=== PATIENT | female | born 1945 | race Caucasian/White ===

== ENCOUNTER 2022-01-15 06:37 | Outpatient (CLI) | payer MEDICARE, BC, SELFPAY ==
--- NOTE | ~2022-01-15 | MR_ITS ---
EXAMINATION: MR shoulder LT wo con DATE: 01/15/2022 07:39 INDICATION: Chronic left shoulder pain TECHNIQUE: Magnetic resonance imaging (MRI) of the left shoulder was performed without intravenous co ntrast. Sequences included axial PD-weighted FS FSE, coronal oblique PD-weighted FS FSE, coronal obli que T2-weighted FS FSE, sagittal PD-weighted FS FSE, and sagittal T1-weighted SE. COMPARISON: None. FINDINGS: Coracoacromial arch: The acromion undersurface is flat in morphology (type I). Moderate-sized subacromial spur at the acro mial insertion of the otherwise normal coracoacromial ligament. Mild acromioclavicular osteoarthritis . Rotator cuff: Full-thickness tear involving all but a small portion of the anterior most supraspinatus tendon and t he anterior two thirds of the infraspinatus tendon which measures approximately 4 cm AP along the sup erior and middle facet footplates of the tendons. There is approximately 3.5 cm medial retraction of the supraspinatus tear margin with moderate tendinopathy extending 2.5 cm medially from the tear janel in. The teres minor tendon is normal. Moderate subscapularis tendinopathy with partial tear involving the cephalad one third to one half of the lesser tuberosity footplate of the subscapularis tendon. T he bursal side of the tendon remains intact and contiguous with the transverse humeral ligament. Ther e is moderate fatty atrophy of the infraspinatus muscle belly and mild fatty atrophy of the supraspin atus and subscapularis muscle bellies. Biceps tendon, glenoid labrum and glenohumeral cartilage: Long head of the biceps tendon is normal. There is a partial-thickness tear at the 3:00-4:00 position of the anteroinferior glenoid labrum. Additional small partial-thickness tear extending laterally in to the substance of the 12:00 position of the superior glenoid labrum. Partial-thickness chondral ulc eration at the cephalad aspect of the glenoid. Additional mild partial-thickness cartilage loss along the inferomedial aspect of the humeral head with tiny marginal osteophytes. Fluid: Moderate-sized glenohumeral joint effusion which extends into the subacromial/subdeltoid bursa throug h the full-thickness rotator cuff tear defect. There is scattered mild synovitis both within the burs a as well as at the axillary and deep subscapular recesses of the joint space. No loose osteochondral bodies. Bones: Normal marrow signal with no edema, fracture or pathologic marrow replacing process. IMPRESSION: 1. Moderate subscapularis, supraspinatus and infraspinatus tendinopathy with full-thickness tear invo lving the majority of the greater tuberosity footplate of the supraspinatus and infraspinatus tendons and partial-thickness tear involving the cephalad one third one half the lesser tuberosity insertion of the subscapularis tendon. This likely chronic given the associated fatty atrophy of the musculatu re most significantly of the infraspinatus. 2. Mild glenohumeral osteoarthritis with small partial thickness tears at the superior and anteroinfe rior glenoid labrum. 3. Likely reactive moderate sized glenohumeral joint effusion. Reviewed, dictated and finalized at location A. IMPRESSION: 1. Moderate subscapularis, supraspinatus and infraspinatus tendinopathy with fu ll-thickness tear involving the majority of the greater tuberosity footplate of the supraspinatus and infraspinatus tendons and partial-thickness tear involvi ng the cephalad one third one half the lesser tuberosity insertion of the subsc apularis tendon. This likely chronic given the associated fatty atrophy of the musculature most significantly of the infraspinatus. 2. Mild glenohumeral osteoarthritis with small partial thickness tears at the s uperior and anteroin
--- NOTE | ~2022-01-15 | MR_ITS ---
EXAMINATION: MR cervical spine wo con DATE: 01/15/2022 07:56 INDICATION: Osteoarthritis of spine with radiculopathy, cervical region. TECHNIQUE: Magnetic resonance imaging (MRI) of the cervical spine was performed without intravenous c ontrast. Sequences included sagittal T2-weighted FSE, sagittal T2-weighted FS FSE, sagittal T1-weight ed FSE, axial MERGE, and axial T2-weighted FSE. COMPARISON: None FINDINGS: There is 3 degrees levocurvature of cervical spine. There is kyphosis of cervical spine. Th ere is 2 mm anterolisthesis of C3 on C4, 2 mm retrolisthesis of C4 on C5 and C5 on C6, and 2 mm anter olisthesis of C7 on T1. There is mild chronic anterior wedging of C4 and C5 vertebral bodies. There i s moderately decreased disc height at C4-C5, severely decreased disc height at C5-C6, and moderately decreased disc height at C6-C7. The spinal cord signal intensity is normal. The following disc levels are specifically discussed: C2-C3: There is a central extrusion. There is no uncovertebral joint osteoarthritis. There is severe bilateral facet joint osteoarthritis. There is mild bilateral neural foraminal stenosis. There is no central canal stenosis. C3-C4: The disc does not extend beyond the endplate margin. There is no uncovertebral joint osteoarth ritis. There is severe left facet joint osteoarthritis. There is ankylosis of right facet joint with severe hypertrophy. There is mild bilateral neural foraminal stenosis. There is no central canal sten osis. C4-C5: The disc is bulging. There is severe bilateral uncovertebral joint osteoarthritis. There is se julia bilateral facet joint osteoarthritis. There is mild bilateral neural foraminal stenosis. There i s mild central canal stenosis with ventral indentation of the spinal cord. C5-C6: The disc is bulging. There is severe bilateral uncovertebral joint osteoarthritis. There is mo derate and mild left facet joint osteoarthritis. There is moderate bilateral neural foraminal stenosi s. There is mild central canal stenosis. C6-C7: The disc is bulging. There is severe bilateral uncovertebral joint osteoarthritis. There is se julia bilateral facet joint osteoarthritis. There is mild bilateral neural foraminal stenosis. There i s mild central canal stenosis. C7-T1: The disc does not extend beyond the endplate margin. There is mild left uncovertebral joint os teoarthritis. There is severe bilateral facet joint osteoarthritis. There is mild bilateral neural fo raminal stenosis. There is no central canal stenosis. IMPRESSION: 1. Severe cervical spondylosis. Reviewed, dictated and finalized at location A.
== END 2022-01-15 06:38 | disposition home or self-care (01) ==
PROVIDERS: PCP Internal Medicine; Visit Provider Physician Assistant
DX: M47.22 Other spondylosis with radiculopathy, cervical region (principal); G89.29 Other chronic pain; M19.012 Primary osteoarthritis, left shoulder
CPT/HCPCS: 72141; 73221